=== PATIENT | male | born 1975 | race Two or more races ===

== ENCOUNTER 2016-11-09 08:25 | Emergency (ER) | payer OTHER ==
[~2016-11-09] VITALS: Ht 160 cm; Wt 94.4 kg
[2016-11-09 10:31] LABS: HEMATOCRIT 50.2 % (39.2-51.8); HEMOGLOBIN 17.3 g/dL (13.7-18.0); WHITE BLOOD COUNT 10.6 x10^3/uL (3.4-10)
[2016-11-09 10:43] LABS: BLOOD UREA NITROGEN 10 mg/dL (7-18)
[2016-11-09 11:40] VITALS: BP 119/80
== END 2016-11-09 11:42 | disposition home or self-care (01) ==
LOC: ED 11:36
DX: R51 Headache (principal); F17.210 Nicotine dependence, cigarettes, uncomplicated
CPT/HCPCS: 36415; 70450; 80048; 82040; 85025; 93005; 99285